=== PATIENT | female | born 1995 | race Two or more races ===

== ENCOUNTER 2021-01-16 13:21 | Emergency (ER) | payer OTHER ==
[~2021-01-16] VITALS: Ht 160 cm; Wt 79.4 kg
[2021-01-16] MEDS ORDERED: PRENA1 TRUE CO1 EACH (13:56)
== END 2021-01-16 18:04 | disposition home or self-care (01) ==
LOC: ER 13:21
DX: O26.891 Other specified pregnancy related conditions, first trimester (principal); J03.90 Acute tonsillitis, unspecified; Z3A.09 9 weeks gestation of pregnancy; Z03.818 Encounter for observation for suspected exposure to other biological agents ruled out